=== PATIENT | female | born 1990 | race African-American/Black ===

== ENCOUNTER 2016-08-19 10:56 | Emergency (ER) | payer MEDICAID, OTHER ==
[~2016-08-19] VITALS: Ht 170.2 cm; Wt 86.0 kg
[2016-08-19] MEDS ORDERED: IBUPROFEN 600MG TABLET PO ONE (14:45)
[2016-08-19 14:48] VITALS: BP 121/74
== END 2016-08-19 14:55 | disposition home or self-care (01) ==
LOC: ER 13:28
DX: R51 Headache (principal)
CPT/HCPCS: 70450; 81025; 99284

== ENCOUNTER 2016-09-22 12:31 | Emergency (ER) | payer OTHER ==
[~2016-09-22] VITALS: Ht 170.2 cm; Wt 94.0 kg
[2016-09-22 13:28] LABS: CLARITY URINE CLOUDY (CLEAR); COLOR URINE YELLOW (YELLOW); GLUCOSE URINE NEGATIVE (NEGATIVE); KETONES URINE NEGATIVE (NEGATIVE); LEUKOCYTE ESTERASE URINE 3+ (NEGATIVE); NITRITE URINE NEGATIVE (NEGATIVE); OCCULT BLOOD URINE NEGATIVE (NEGATIVE); PROTEIN URINE NEGATIVE (NEGATIVE); SPECIFIC GRAVITY URINE 1.022 (1.005-1.030)
[2016-09-22] MEDS ORDERED: ACETAMINOPHEN 325MG TABLET PO ONE (13:30)
[2016-09-22 14:05] LABS: EOSINOPHILS % 1.3 % (0.0-5.0); HEMATOCRIT. 40.8 % (36.0-48.0); INR 1.1; LYMPHOCYTES % 23.4 % (20.0-50.0); MEAN CORPUSCULAR VOLUME 72.5 fL (81.0-99.0); MEAN PLATELET VOLUME 9.1 fl (7.4-10.4); MONOCYTES % 9.7 % (2.0-8.0); NEUTROPHILS % 64.6 % (40.0-76.0); PARTIAL THROMBOPLASTIN TIME 28.2 sec (24.0-34.0); PLATELET 250 x1000/uL (130-400); PROTHROMBIN TIME 11.3 sec; RED BLOOD CELL COUNT 5.63 mill/uL (4.2-5.4); RED CELL DISTRIBUTION WIDTH 14.7 % (11.6-14.6)
[2016-09-22 14:12] LABS: CARBON DIOXIDE 25 mEq/L (21-32); CHLORIDE 106 mEq/L (98-107)
[2016-09-22 18:37] VITALS: BP 118/72
== END 2016-09-22 18:40 | disposition home or self-care (01) ==
LOC: ER 13:10
DX: O30.001 Twin pregnancy, unspecified number of placenta and unspecified number of amniotic sacs, first trimester (principal); N39.0 Urinary tract infection, site not specified; O23.41 Unspecified infection of urinary tract in pregnancy, first trimester; O46.8X1 Other antepartum hemorrhage, first trimester; Z3A.01 Less than 8 weeks gestation of pregnancy
CPT/HCPCS: 36415; 76801; 76802; 80053; 81001; 81025; 83690; 84702; 85025; 85610; 85730; 86850; 86900; 99285